=== PATIENT | female | born 1965 | race Two or more races ===

== ENCOUNTER → 2019-11-19 | Outpatient (CLI) | payer OTHER | END | disposition home or self-care (01) | LOC: NUCLEAR 08:42 | DX: I77.0 Arteriovenous fistula, acquired (principal) ==

== ENCOUNTER 2019-11-27 11:37 | Outpatient (CLI) | payer OTHER | END 2019-11-27 11:52 | disposition home or self-care (01) | LOC: NUCLEAR 11:37 | DX: I77.0 Arteriovenous fistula, acquired (principal); I87.2 Venous insufficiency (chronic) (peripheral) ==

== ENCOUNTER 2021-01-19 08:59 | Outpatient (CLI) | payer OTHER | END 2021-01-19 09:05 | disposition home or self-care (01) | LOC: NUCLEAR 08:59 | PROVIDERS: ATTEND General Practice | DX: I87.2 Venous insufficiency (chronic) (peripheral) (principal); I73.9 Peripheral vascular disease, unspecified ==

== ENCOUNTER → 2021-01-20 | Outpatient (CLI) | payer OTHER | END | disposition home or self-care (01) | LOC: NUCLEAR 01-16 08:30 | PROVIDERS: ATTEND General Practice | DX: I87.2 Venous insufficiency (chronic) (peripheral) (principal); I73.9 Peripheral vascular disease, unspecified ==